=== PATIENT | male | born 1970 | race African-American/Black ===

== ENCOUNTER 2016-12-31 16:56 | Emergency (ER) | payer MEDICAID ==
[~2016-12-31] VITALS: Ht 190.5 cm; Wt 146.8 kg
[2016-12-31 17:56] LABS: HEMATOCRIT 43.2 % (39.2-51.8); HEMOGLOBIN 14.4 g/dL (13.7-18.0); WHITE BLOOD COUNT 9.6 x10^3/uL (3.4-10)
[2016-12-31 18:07] LABS: BLOOD UREA NITROGEN 14 mg/dL (7-18)
[2016-12-31 18:11] LABS: ASPARTATE AMINO TRANSFERASE 18 U/L (15-37)
[2016-12-31] MEDS ORDERED: AMLODIPINE 5 MG TABLET PO ONE (18:30)
[2016-12-31 19:26] VITALS: BP 159/100
== END 2016-12-31 19:27 | disposition home or self-care (01) ==
LOC: ED 19:25
DX: I10 Essential (primary) hypertension (principal); Z76.0 Encounter for issue of repeat prescription
CPT/HCPCS: 36415; 80053; 85025; 93005; 99283; 99285

== ENCOUNTER 2017-01-15 13:55 | Emergency (ER) | payer MEDICAID, OTHER ==
[~2017-01-15] VITALS: Ht 182.9 cm; Wt 146.6 kg
[2017-01-15 15:03] VITALS: BP 153/93
== END 2017-01-15 15:53 | disposition home or self-care (01) ==
LOC: ED 15:47
DX: B34.9 Viral infection, unspecified (principal); R05 Cough; I10 Essential (primary) hypertension; S20.211A Contusion of right front wall of thorax, initial encounter; X58.XXXA Exposure to other specified factors, initial encounter; Y93.89 Activity, other specified; Y99.8 Other external cause status; Y92.89 Other specified places as the place of occurrence of the external cause
CPT/HCPCS: 93005; 99283